=== PATIENT | female | born 1985 | race Caucasian/White ===

== ENCOUNTER 2016-10-21 10:54 | Emergency (ER) | payer BC ==
[2016-10-21 11:24] VITALS: BP 141/95
--- NOTE | 2016-10-21 11:54 | EDM.PDOC ---
ED HPI GENERAL MEDICAL PROBLEM - General Chief Complaint: Abdominal Pain Stated Complaint: STOMACH PAIN Time Seen by Provider: 10/21/16 11:27 Source of Information: Reports: Patient History Limitations: Reports: No Limitations - History of Present Illness INITIAL COMMENTS - FREE TEXT/NARRATIVE: Patient is a 31-year-old female who presents to the ED complaining of periumbilical abdominal, left upper quadrant, and left lower quadrant abdominal pain. Patient states symptoms started this past Friday. Describes the discomfort as a labor pain, constipated, sensation is a pool. She was evaluated Friday at the [facility] ER and had CT of the abdomen obtained. This revealed patient was constipated with gallstones. She was instructed to take MiraLAX to which she's been doing over the course of the weekend. Patient states she's had frequent bowel movements with no blood present. States last night she was feeling 100%. She woke this morning with pain as described above again. Pain is constant with waxing waning noted. Pain is not worsened with eating. She has no acid reflux. She denies any fever/chills, nausea/vomiting, pain with urination, abdominal pain with admission to the ED, or any additional complaints Patient denies being . She has no previous past medical history and currently taking no medications. She smokes a half pack a day. Denies any alcohol or recreational drug use. Abdominal Pain Score (Numeric/FACES): 4 - Related Data Allergies Allergy/AdvReac Type Severity Reaction Status Date / Time No Known Allergies Allergy Verified 10/21/16 11:19 Home Meds: Home Meds . [No Known Home Meds] 10/21/16 [History] Past Medical History - Past Health History Medical/Surgical History: Denies Medical/Surgical History Social & Family History - Tobacco Use Smoking Status *Q: Current Every Day Smoker Years of Tobacco use: 10 Packs/Tins Daily: 0.5 - Recreational Drug Use Recreational Drug Use: No ED ROS GENERAL - Review of Systems Review Of Systems: ROS reveals no pertinent complaints other than HPI. ED EXAM, GI/ABD - Physical Exam Exam: See Below Exam Limited By: No Limitations General Appearance: Alert, WD/WN, No Apparent Distress Ears: Hearing Grossly Normal Nose: Normal Inspection Throat/Mouth: Normal Voice, No Airway Compromise Neck: Normal Inspection, Supple Respiratory/Chest: No Respiratory Distress, Lungs Clear, Normal Breath Sounds, No Accessory Muscle Use Cardiovascular: Normal Peripheral Pulses, Regular Rate, Rhythm GI/Abdominal Exam: Normal Bowel Sounds, Soft, Non-Tender, No Organomegaly, No Distention, Other (No mcburneys point or murcia sign) Back Exam: Normal Inspection Extremities: Normal Inspection, Non-Tender, No Pedal Edema, Normal Capillary Refill Neurological: Alert, Oriented, Normal Cognition, No Motor/Sensory Deficits Psychiatric: Normal Affect, Normal Mood Skin Exam: Warm, Dry, Intact, Normal Color Course - Vital Signs Last Recorded V/S: Last Vital Signs Temp 98.9 F 10/21/16 11:20 Pulse 64 10/21/16 11:20 Resp BP 141/95 H 10/21/16 11:20 Pulse Ox 99 10/21/16 11:20 - Orders/Labs/Meds Labs: Laboratory Tests 10/21/16 10/21/16 10/21/16 Range/Units 11:20 12:10 12:10 WBC 8.19 (3.98-10.04) K/mm3 RBC 5.24 H (3.98-5.22) M/mm3 Hgb 15.8 H (11.2-15.7) gm/L Hct 45.2 H (34.1-44.9) % MCV 86.3 (79.4-94.8) fl MCH 30.2 (25.6-32.2) pg MCHC 35.0 (32.2-35.5) g/dl RDW Std Deviation 38.7 (36.4-46.3) fL Plt Count 227 (182-369) K/mm3 MPV 11.0 (9.4-12.3) fl Neut % (Auto) 72.7 H (34.0-71.1) % Lymph % (Auto) 19.9 (19.3-51.7) % Stearns % (Auto) 6.2 (4.7-12.5) % Eos % (Auto) 0.6 L (0.7-5.8) Baso % (Auto) 0.5 (0.1-1.2) % Neut # (Auto) 5.95 (1.56-6.13) K/mm3 Lymph # (Auto) 1.63 (1.18-3.74) K/mm3 Stearns # (Auto) 0.51 H (0.24-0.36) K/mm3 Eos # (Auto) 0.05 (0.04-0.36) K/mm3 Baso # (Auto) 0.04 (0.01-0.08) K/mm3 Sodium 142 (136-145) mEq/L Potassium 4.0 (3.5-5.1) mEq/L Chloride 105 (98-107) mEq/L Carbon Dioxide 31 (21-32) mEq/L Anion Gap 10.0 (5-15) BUN 11 (7-18) mg/dL Creatinine 0.9 (0.55-1.02) mg/dL Est Cr Clr Drug Dosing 73.31 mL/min Estimated GFR (MDRD) > 60 (>60) mL/min BUN/Creatinine Ratio 12.2 L (14-18) Glucose 102 (74-106) mg/dL Calcium 9.4 (8.5-10.1) mg/dL Total Bilirubin 0.8 (0.2-1.0) mg/dL AST 16 (15-37) U/L ALT 20 (14-59) U/L Alkaline Phosphatase 81 (46-116) U/L C-Reactive Protein < 0.2 (<1.0) mg/dL Total Protein 7.0 (6.4-8.2) g/dl Albumin 4.3 (3.4-5.0) g/dl Globulin 2.7 gm/dL Albumin/Globulin Ratio 1.6 (1-2) Urine Color Yellow (Yellow) Urine Appearance Clear (Clear) Urine pH 7.0 (5.0-8.0) Ur Specific [place] 1.020 (1.005-1.030) Urine Protein Negative (Negative) Urine Glucose (UA) Negative (Negative) Urine Ketones Negative (Negative) Urine Occult Blood Negative (Negative) Urine Nitrite Negative (Negative) Urine Bilirubin Negative (Negative) Urine Urobilinogen 0.2 (0.2-1.0) Ur Leukocyte Esterase Negative (Negative) Urine RBC Not seen (0-5) /hpf Urine WBC 0-5 (0-5) /hpf Ur Epithelial Cells 0-5 (0-5) /hpf Urine Bacteria Few (FEW) /hpf Urine Mucus Not seen (FEW) /hpf - Re-Assessments/Exams Free Text/Narrative Re-Assessment/Exam: Obtaining ER notes from [place] that took place from this past Friday. CT the abdomen and pelvis impression: Cholelithiasis without definite inflammatory changes. Moderate stool throughout the colon. Labs reviewed: UA was negative. White blood count was normal creatinine 0.89, hCG negative. Will obtain basic labs and x-ray of the abdomen. 10/21/16 12:25 Abdominal x-ray revealed nonspecific stool and air pattern. No acute findings noted. Reviewed with Dr. Gordon. Final interpretation pending. Labs reviewewed with no concerning findings. Ultrasound impression: Multiple gallstones. no gallbladder wall thickening or biliary duct dilatation is seen. No additional abnormalities identified on right upper quadrant abdominal ultrasound. Shared results of labs and studies with patient. Patient is pain-free at this time. Will discharge patient home with instructions as documented. Departure - Departure Time of Disposition: 14:01 Disposition: Home, Self-Care 01 Condition: Good Clinical Impression: Abdominal pain Qualifiers: Abdominal location: generalized Qualified Code(s): R10.84 - Generalized abdominal pain Cholelithiasis Qualifiers: Cholelithiasis location: gallbladder Cholecystitis presence: without cholecystitis Biliary obstruction: without biliary obstruction Qualified Code(s) : K80.20 - Calculus of gallbladder without cholecystitis without obstruction Constipation Qualifiers: Constipation type: unspecified constipation type Qualified Code(s): K59.00 - Constipation, unspecified - Discharge Information Instructions: Abdominal Pain, Adult, [id number], Constipation, Adult, Easy-to -Read Referrals: PCP,Not In Area [Primary Care Provider] - Lorraine Cabrera [Physician] - Forms: ED Department Discharge Additional Instructions: Etiology of abdominal pain may be associated with constipation as illustrated on CT and x-ray of the abdomen. In addition you have gallstones present within the gallbladder shows no signs of inflammation. This may be related to the gallbladder but highly unlikely. Will have you continue taking MiraLAX one capful every day with copious amounts of water. Increase exercise, water consumption, and fiber in diet. Follow-up with PCP in 2 weeks for reevaluation. if pain is not improving he may require consultation by general surgeon. Return to the ED as needed for any new or worsening symptoms.
--- NOTE | 2016-10-21 12:37 | CR ---
Abdomen: Supine and upright views of the abdomen were obtained. Comparison: No previous study. Bowel gas pattern is normal. No free air is seen. Bony structures are unremarkable. No abnormal calcifications are seen. Impression: 1. No abnormality is seen on two-view abdominal x-ray. Diagnostic code #1
--- NOTE | 2016-10-21 13:20 | US ---
Limited abdominal ultrasound: Multiple real-time images of the upper right abdomen were obtained. Comparison: No previous abdominal ultrasound. Liver shows no focal parenchymal abnormality. Right kidney shows no hydronephrosis or mass. Multiple gallstones are seen within the gallbladder. No gallbladder wall thickening or biliary duct dilatation is seen. Pancreas is incompletely seen. Visualized portions of the pancreas are within normal limits. Impression: 1. Multiple gallstones. No gallbladder wall thickening or biliary duct dilatation is seen. 2. No additional abnormality is identified on right upper quadrant abdominal ultrasound. Diagnostic code #3
== END 2016-10-21 14:14 | disposition home or self-care (01) ==
LOC: JD.ED 10:54
DX: K80.20 Calculus of gallbladder without cholecystitis without obstruction (principal); K59.00 Constipation, unspecified; F17.210 Nicotine dependence, cigarettes, uncomplicated
CPT/HCPCS: 36415; 74020; 74020-26; 76705; 76705-26; 80053; 81001; 85025; 86140; 99283; 99285-25

== ENCOUNTER 2021-12-09 13:48 | Emergency (ER) | payer BC ==
[2021-12-09 14:06] VITALS: BP 142/88; PULSE 102
[2021-12-09] MEDS ORDERED: Hyoscyamine 0.125 MG Tab.SL SL ONE (14:25)
[2021-12-09] MEDS ORDERED: Sodium Chloride 0.9% 10 ML Syringe FLUSH PRN (14:25)
[2021-12-09 15:26] LABS: ESTIMATED GFR 68 mL/min (>60)
== END 2021-12-09 17:42 | disposition home or self-care (01) ==
LOC: JD.ED 13:48
DX: K80.20 Calculus of gallbladder without cholecystitis without obstruction (principal); Z72.0 Tobacco use
CPT/HCPCS: 36415; 74018; 76705; 80053; 81001; 81025; 83690; 83735; 84484; 85025; 86140; 87086; 93005; 99284; A9270; J3490; 93010; 99283

== ENCOUNTER → 2021-12-18 | Day surgery (SDC) | payer BC ==
[~2021-12-18] MED LIST: Bupivacaine 0.5% 10 ML SDV ONE; Dexamethasone 4 MG/ML 5 ML MDV ONE; Iopamidol 612 MG/ML 50 ML SDV ONE; Ketorolac 15 MG/ML SDV ONE; Lactated Ringers 1,000 ML IV SCH; Lactated Ringers 1,000 ML ONE; Lidocaine 1% 4 ML ONE; Lidocaine 1% with EPINEPHrine 1:100,000 10 ML MDV ONE; Lidocaine 1%/Sod Bicarbonate in NS 8.4% 1 ML Syringe IDERM PRN; Midazolam 1 MG/ML 2 ML SDV ONE; Neostigmine Methylsulfate 10 MG/10 ML MDV ONE; Ondansetron 4 MG/2 ML SDV ONE; Propofol 200 MG/20 ML SDV ONE; Rocuronium 50 MG/5 ML Vial ONE; Sodium Chloride 0.9% 10 ML Syringe FLUSH PRN; Sodium Chloride 0.9% 10 ML Syringe FLUSH SCH; Sodium Chloride 0.9% 50 ML SDV ONE; ceFAZolin 2 GM Vial ONE; fentaNYL 250 MCG/5 ML SDV ONE
== END ==
LOC: JD.SDS 06:00
PROVIDERS: ATTEND Surgery
DX: K80.10 Calculus of gallbladder with chronic cholecystitis without obstruction (principal); K83.8 Other specified diseases of biliary tract; K21.9 Gastro-esophageal reflux disease without esophagitis; Z87.891 Personal history of nicotine dependence
CPT/HCPCS: 47563; 76000; 81025; J0690; J1100; J1885; J2250; J2405; J2704; J2710; J3010; J3490; J7120; Q9967; 00790